=== PATIENT | female | born 1980 | race African-American/Black ===

== ENCOUNTER 2016-11-13 21:22 | Inpatient (IN) | payer OTHER ==
[~2016-11-13] VITALS: Ht 165.1 cm; Wt 98.4 kg
[~2016-11-13 21:22] MED LIST: CYCL-36 PO; NAPR500 PO; ULTR50TA5 PO; ZOFR4TAB3 SL
[2016-11-13 21:27] VITALS: BP 146/81; PULSE 88; RESP 18; TEMP 99.6; O2SAT 100
[2016-11-13] MEDS ORDERED: SODIUM CHLOR 0.9% 1000 ML INJ 1,000 ML IV SCH (21:41)
[2016-11-13] MEDS ORDERED: MORPHINE SULFATE 4 MG/ML INJ IV PUSH ONE (21:45)
[2016-11-13] MEDS ORDERED: PANTOPRAZOLE SODIUM 40 MG VIAL IVP ONE (21:45)
[2016-11-13] MEDS ORDERED: ONDANSETRON HCL 4 MG/2 ML VIAL IVP ONE (21:45)
--- NOTE | 2016-11-13 21:49 | PD ---
HPI Chief Complaint: GI Complaint Time Seen by Provider: 21:33 Travel History International Travel<30 days: No Contact w/Intl Traveler<30days: No Traveled to known affect area: No History of Present Illness HPI 36-year-old female complains of abdominal pain and nausea vomiting. Patient states that symptoms started 3 days ago. Patient states the pain is cramping pain and sharp pain, diffuse over the abdomen however most severe right upper quadrant the abdomen. Patient states the pain radiates to the right flank area. Patient states the pain occasionally radiates to the right shoulder. Patient denies any fever chills. Patient denies any coughing congestion. Patient states that she has intermittent indigestion for the past few months. Patient denies any headache. Patient denies any chest pain or shortness of breath. Patient denies any dysuria or frequency. Patient denies any vaginal discharge or bleeding. Patient denies any fever chills. On a scale of 1-10 the pain is a 9. Patient was seen in emergency room last night and discharged with diagnosis of biliary colic. Patient states that the symptoms and get worse since last night. PFSH Past Medical History Blood Disorders: No Cancer: No Cardiovascular Problems: Yes (CHF after giving ) High Cholesterol: No Chest Pain: No Congestive Heart Failure: Yes (WITH FIRST CHILD DEC 2004) Diabetes: Yes (Borderline ) Diminished Hearing: No Endocrine: No Gastrointestinal Disorders: No Genitourinary: No Hypertension: No Immune Disorder: No Musculoskeletal: No Neurologic: No Psychiatric: No Reproductive: No Respiratory: No Immunizations Current: Yes Myocardial Infarction: No ?: Not LMP: Tubal/End of September : 7 Para: 6 Miscarriage: 1 : 0 Dilation and Curettage (D&C): Yes Tubal Ligation: Yes Past Surgical History Abdominal Surgery: No Cardiac Surgery: No Ear Surgery: No Endocrine Surgery: No Eye Surgery: No Genitourinary Surgery: No Gynecologic Surgery: Yes (D AND C) Oral Surgery: No Thoracic Surgery: No Other Surgery: Yes (D&C) Social History Alcohol Use: No Tobacco Use: No Substance Use: No Allergies-Medications (Allergen,Severity, Reaction): Coded Allergies: Iodine (Verified Allergy, Severe, Rash, 11/13/16) Iohexol (OMNIPAQUE) (Unverified Allergy, Severe, PT NEEDS TO BR PREMEDICATED, 11/13/16) Reported Meds & Prescriptions Reported Meds & Active Scripts Active Ultram (Tramadol HCl) 50 Mg Tab 50 Mg PO Q6H PRN Zofran Odt (Ondansetron Odt) 4 Mg Tab 4 Mg SL Q6HR PRN Flexeril (Cyclobenzaprine HCl) 10 Mg Tab 10 Mg PO TID Naprosyn (Naproxen) 500 Mg Tab 1 Tab PO BID Review of Systems General / Constitutional: No: Fever Eyes: No: Visual changes HENT: No: Headaches Cardiovascular: No: Chest Pain or Discomfort Respiratory: No: Shortness of Breath Gastrointestinal: Positive: Nausea, Vomiting, Abdominal Pain Genitourinary: No: Dysuria Musculoskeletal: No: Pain Skin: No Rash Neurologic: No: Weakness Psychiatric: No: Depression Endocrine: No: Polydipsia Hematologic/Lymphatic: No: Easy Bruising Physical Exam Narrative GENERAL: Well-nourished, well-developed patient. SKIN: Warm and dry. HEAD: Normocephalic. EYES: No scleral icterus. No injection or drainage. NECK: Supple, trachea midline. No JVD or lymphadenopathy. CARDIOVASCULAR: Regular rate and rhythm without murmurs, gallops, or rubs. RESPIRATORY: Breath sounds equal bilaterally. No accessory muscle use. GASTROINTESTINAL: Abdomen soft, nondistended. Patient has moderate tenderness on palpation right upper quadrant of the abdomen. No rebound tenderness. No mass. MUSCULOSKELETAL: No cyanosis, or edema. BACK: Nontender without obvious deformity. No CVA tenderness. Neurologic exam normal. Data Data Last Documented VS Vital Signs Date Time Temp Pulse Resp B/P Pulse Ox O2 Delivery O2 Flow Rate FiO2 11/13/16 22:39 18 11/13/16 22:20 79 144/87 100 Room Air 11/13/16 21:27 99.6 Orders Beta Hcg (Quant/Titer) (11/13/16 21:41) Complete Blood Count With Diff (11/13/16 21:41) Comprehensive Metabolic Panel (11/13/16 21:41) Lipase (11/13/16 21:41) Prothrombin Time / Inr (Pt) (11/13/16 21:41) Act Partial Throm Time (Ptt) (11/13/16 21:41) Urinalysis - C+S If Indicated (11/13/16 21:41) Iv Access Insert/Monitor (11/13/16 21:41) Ecg Monitoring (11/13/16 21:41) Oximetry (11/13/16 21:41) Morphine Inj (Morphine Inj) (11/13/16 21:45) Ondansetron Inj (Zofran Inj) (11/13/16 21:45) Pantoprazole Inj (Protonix Inj) (11/13/16 21:45) Sodium Chlor 0.9% 1000 Ml Inj (Ns 1000 M (11/13/16 21:41) Ct Abd/Pel W/O Iv Contrast (11/13/16 21:41) Hydromorphone Pf Inj (Dilaudid Pf Inj) (11/13/16 23:30) Piperacil-Tazo 3.375 Gm Premix (Zosyn 3. (11/13/16 23:30) Metronidazole 500 Mg Inj (Flagyl 500 Mg (11/13/16 23:30) Labs Laboratory Tests Test 11/13/16 21:50 White Blood Count 11.4 TH/MM3 Red Blood Count 4.27 MIL/MM3 Hemoglobin 11.6 GM/DL Hematocrit 35.2 % Mean Corpuscular Volume 82.5 FL Mean Corpuscular Hemoglobin 27.2 PG Mean Corpuscular Hemoglobin 33.0 % Concent Red Cell Distribution Width 15.4 % Platelet Count 351 TH/MM3 Mean Platelet Volume 8.2 FL Neutrophils (%) (Auto) 85.1 % Lymphocytes (%) (Auto) 9.1 % Monocytes (%) (Auto) 3.3 % Eosinophils (%) (Auto) 0.0 % Basophils (%) (Auto) 2.5 % Neutrophils # (Auto) 9.8 TH/MM3 Lymphocytes # (Auto) 1.0 TH/MM3 Monocytes # (Auto) 0.4 TH/MM3 Eosinophils # (Auto) 0.0 TH/MM3 Basophils # (Auto) 0.3 TH/MM3 CBC Comment DIFF FINAL Differential Comment Prothrombin Time 10.9 SEC Prothromb Time International 1.0 RATIO Ratio Activated Partial 23.8 SEC Thromboplast Time Sodium Level 137 MEQ/L Potassium Level 3.8 MEQ/L Chloride Level 101 MEQ/L Carbon Dioxide Level 24.5 MEQ/L Anion Gap 12 MEQ/L Blood Urea Nitrogen 10 MG/DL Creatinine 0.84 MG/DL Estimat Glomerular Filtration 92 ML/MIN Rate Random Glucose 138 MG/DL Calcium Level 8.7 MG/DL Total Bilirubin 0.5 MG/DL Aspartate Amino Transf 20 U/L (AST/SGOT) Alanine Aminotransferase 30 U/L (ALT/SGPT) Alkaline Phosphatase 81 U/L Total Protein 8.2 GM/DL Albumin 3.6 GM/DL Lipase 705 U/L Human Chorionic Gonadotropin, LESS THAN 1 Quant MIU/ML MDM Medical Decision Making Medical Screen Exam Complete: Yes Emergency Medical Condition: Yes Interpretation(s) 23:19 PM. CBC WBC 11.4. 85 neutrophil. CMP within normal limit. Lipase 705. Differential Diagnosis Differential diagnosis including gastritis, PUD, pancreatitis, cholecystitis, colitis, UTI, pyelonephritis, nephrolithiasis. Narrative Course 36-year-old female with abdominal pain, nausea vomiting. The pain most severe right upper quadrant of the abdomen. Normal saline solution 1 25 cc an hour. Morphine 4 mg IV. Zofran 4 mg IV. Protonix 40 mg IV. Dilaudid 1 mg IV given. Zosyn 3.375 g IV given. Flagyl 500 mg IV given. I spoke with Dr. Montana , negative restorer on-call. Advised medical admission to the main hospital with GI consultation. Diagnosis Primary Impression: Acute pancreatitis Qualified Code: K85.10 - Acute biliary pancreatitis without infection or necrosis Additional Impression: Cholelithiasis Qualified Code: K80.20 - Calculus of gallbladder without cholecystitis without obstruction Admitting Information Admitting Physician Requests: Admit Ozzie Valdes MD Nov 13, 2016 21:49
[2016-11-13 21:50] VITALS: O2SAT 100
[2016-11-13 22:09] LABS: AUTOMATED NEUTROPHIL # 9.8 TH/MM3 (1.8-7.7); BASOPHIL # 0.3 TH/MM3 (0-0.2); BASOPHIL % 2.5 % (0.0-2.0); HEMATOCRIT 35.2 % (35.0-46.0); LYMPH % 9.1 % (9.0-44.0); MEAN CELL VOLUME 82.5 FL (80.0-100.0); MEAN CORPUSCULAR HEMOGLOBIN 27.2 PG (27.0-34.0); MONO % 3.3 % (0.0-8.0); NEUT % 85.1 % (16.0-70.0); PLATELET COUNT 351 TH/MM3 (150-450); RED BLOOD COUNT 4.27 MIL/MM3 (4.00-5.30); RED CELL DISTRIBUTION WIDTH 15.4 % (11.6-17.2); WHITE BLOOD COUNT 11.4 TH/MM3 (4.0-11.0)
[2016-11-13 22:10] LABS: HEMO FLAGS DIFF FINAL
[2016-11-13 22:15] LABS: CHLORIDE 101 MEQ/L (98-107); POTASSIUM 3.8 MEQ/L (3.5-5.1); SODIUM (NA) 137 MEQ/L (136-145)
[2016-11-13 22:19] LABS: ANION GAP 12 MEQ/L (5-15); BICARBONATE 24.5 MEQ/L (21.0-32.0)
[2016-11-13 22:20] VITALS: BP 144/87; PULSE 79; RESP 18; O2SAT 100
[2016-11-13 22:20] LABS: APTT (PATIENT) 23.8 SEC (24.3-30.1); BLOOD UREA NITROGEN 10 MG/DL (7-18); PROTHROMBIN TIME - PATIENT 10.9 SEC (9.8-11.6)
[2016-11-13 22:22] LABS: ALT (GPT) 30 U/L (10-53); AST (GOT) 20 U/L (15-37); GLOMERULAR FILTRATION RATE 92 ML/MIN (>89)
[2016-11-13 22:24] LABS: TOTAL BILIRUBIN ADULT 0.5 MG/DL (0.2-1.0)
[2016-11-13 22:25] LABS: ALKALINE PHOSPHATASE 81 U/L (45-117)
[2016-11-13 22:31] LABS: BETA HCG QUANT LESS THAN 1 MIU/ML (0-5)
[2016-11-13 23:20] VITALS: BP 129/76; PULSE 90; RESP 18; TEMP 99.2; O2SAT 98
--- NOTE | 2016-11-13 23:23 | RADHPO ---
EXAM DATE/TIME: 11/13/2016 22:54 [facility] COMPARISON: No previous studies available for comparison. INDICATIONS : Right flank pain with nausea and vomiting. ORAL CONTRAST: No oral contrast ingested. RADIATION DOSE: 23.18 CTDIvol (mGy) MEDICAL HISTORY : Congestive heart failure. SURGICAL HISTORY : Tubal ligation. ENCOUNTER: Initial ACUITY: 1 day PAIN SCALE: 6/10 LOCATION: Right flank TECHNIQUE: Volumetric scanning of the abdomen and pelvis was performed. Using automated exposure control and ad justment of the mA and/or kV according to patient size, radiation dose was kept as low as reasonably achievable to obtain optimal diagnostic quality images. FINDINGS: LOWER LUNGS: The visualized lower lungs are clear. LIVER: The liver is normal in size and shape with diffuse fatty infiltration. There is a focal low attenuati on lesion in the anterior liver best seen on axial image #17 measuring approximately 12 x 8 mm. There is no dilation of the biliary tree. There are multiple small high density foci in the gallbladder wh ich are not definitely calcified. There is no wall thickening or pericholecystic fluid. SPLEEN: Normal size without lesion. PANCREAS: Within normal limits. KIDNEYS: Normal in size and shape. There is no mass, stone, or hydronephrosis. ADRENAL GLANDS: Within normal limits. VASCULAR: There is no aortic aneurysm. BOWEL/MESENTERY: The stomach, small bowel, and colon demonstrate no acute abnormality. There is no free intraperitone al air or fluid. ABDOMINAL WALL: Within normal limits. RETROPERITONEUM: There is no lymphadenopathy. BLADDER: No wall thickening or mass. REPRODUCTIVE: Within normal limits. INGUINAL: There is no lymphadenopathy or hernia. MUSCULOSKELETAL: Within normal limits for patient age. CONCLUSION: 1. Numerous small high density foci in the gallbladder which are not definitely calcified but are mos t consistent with gallstones. There is no wall thickening or pericholecystic fluid. 2. Diffuse fatty infiltration of the liver with low attenuation lesion which is nonspecific but most consistent with a cyst or cavernous hemangioma. 3. The kidneys are unremarkable with no renal calculi or obstruction. Jude Hwang MD on November 13, 2016 at 23:19 Board Certified Radiologist. This report was verified electronically.
[2016-11-13] MEDS ORDERED: PIPERACIL-TAZO 3.375 GM PREMIX 50 ML IV ONE (23:30)
[2016-11-13] MEDS ORDERED: metroNIDAZOLE 500 MG INJ 100 ML IV ONE (23:30)
[2016-11-13] MEDS ORDERED: HYDROmorphone HCL PF 1 MG/ML VIAL IV PUSH ONE (23:30)
[2016-11-14] VITALS (11 sets, daily range): BP systolic 112–145; BP diastolic 58–71; PULSE 81–95; RESP 16–20; TEMP 98.6–99.2; O2SAT 96–99
[2016-11-14] MEDS ORDERED: SODIUM CHLORIDE 0.9% FLUSH 5 ML FLUSH IVF PRN
[2016-11-14] MEDS ORDERED: metroNIDAZOLE 500 MG INJ 100 ML IV SCH ×4 (00:15→08:00)
[2016-11-14 01:12] LABS: BLOOD, URINE SMALL (NEG); GLUCOSE,URINE NEG (NEG); KETONE, URINE 40 mg/dL (NEG); NITRITE,URINE NEG (NEG)
[2016-11-14 01:14] LABS: URINE COLOR YELLOW (YELLW/STRAW)
[2016-11-14 01:18] LABS: COMMENT (UR) CULT NOT INDICATED; CULTURE IF INDICATED CULT NOT INDICATED; WBC, URINE 0-2 /hpf (0-5)
[2016-11-14] MEDS: PANTOPRAZOLE SODIUM 40 MG VIAL IV PUSH SCH (07:51)
[2016-11-14] MEDS: HYDROmorphone HCL PF 1 MG/ML VIAL IV PUSH PRN ×4 (07:52→22:50)
[2016-11-14] MEDS: SODIUM CHLORIDE 0.9% FLUSH 5 ML FLUSH IVF SCH ×2 (07:52→22:51)
[2016-11-14] MEDS ORDERED: PIPERACIL-TAZO 3.375 GM PREMIX 50 ML IV SCH ×2 (08:00)
[2016-11-14 09:10] LABS: AUTOMATED NEUTROPHIL # 9.5 TH/MM3 (1.8-7.7); BASOPHIL # 0.1 TH/MM3 (0-0.2); BASOPHIL % 0.8 % (0.0-2.0); EOSINOPHIL % 0.1 % (0.0-4.0); HEMATOCRIT 32.1 % (35.0-46.0); HEMO FLAGS DIFF FINAL; LYMPH % 10.8 % (9.0-44.0); LYMPHOCYTE # 1.2 TH/MM3 (1.0-4.8); MEAN CORPUSCULAR HEMOGLOBIN 26.6 PG (27.0-34.0); MONO % 5.8 % (0.0-8.0); NEUT % 82.5 % (16.0-70.0); PLATELET COUNT 270 TH/MM3 (150-450); RED BLOOD COUNT 3.87 MIL/MM3 (4.00-5.30); RED CELL DISTRIBUTION WIDTH 16.7 % (11.6-17.2); WHITE BLOOD COUNT 11.5 TH/MM3 (4.0-11.0)
[2016-11-14 09:42] LABS: ALKALINE PHOSPHATASE 72 U/L (45-117); ALT (GPT) 25 U/L (10-53); ANION GAP 9 MEQ/L (5-15); AST (GOT) 14 U/L (15-37); BLOOD UREA NITROGEN 10 MG/DL (7-18); CHLORIDE 99 MEQ/L (98-107); GLOMERULAR FILTRATION RATE 99 ML/MIN (>89); POTASSIUM 3.2 MEQ/L (3.5-5.1); SODIUM (NA) 135 MEQ/L (136-145); TOTAL BILIRUBIN ADULT 0.6 MG/DL (0.2-1.0)
--- NOTE | 2016-11-14 11:23 | PD.CONS ---
HPI History of Present Illness This is a 36 year old female patient who came to the ER for evaluation of nausea , vomiting, abdominal pain. Her symptoms began suddenly about 3 days ago. She states that this is a dull ache in her epigastric area that radiates to her back. She states this is constant and she has associated nausea/vomiting. She denies any associated weight loss, diarrhea, constipation, melena, or hematochezia. She has a hx of GERD, but states only if she eats fried foods, otherwise this is well controlled. She reports that she has been having this intermittently for quite some time, but that it has become more severe and frequent over the past 3 weeks. Her symptoms are aggravated by food intake. Abdomen/Pelvis CT (11/13/16)-----> 1. Numerous small high density foci in the gallbladder which are not definitely calcified but are most consistent with gallstones. There is no wall thickening or pericholecystic fluid. 2. Diffuse fatty infiltration of the liver with low attenuation lesion which is nonspecific but most consistent with a cyst or cavernous hemangioma. 3. The kidneys are unremarkable with no renal calculi or obstruction. She also has mild leukocytosis and her lipase was mildly elevated on admission, but has since normalized. She denies any hx of pancreatitis or PUD. She denies ever having any gallbladder issues. She does not drink ETOH and has not recently started any new medications or herbal supplements. She is not aware of any family hx of pancreatitis. (Lois Verma) PFSH Past Medical History B12 Deficiency Iron Deficient Anemia Migraine headache Cervical radiculopathy Vitamin D. Deficiency Biliary colic Past Surgical History Tubal ligation D&C (Lois Verma) Coded Allergies: Iodine (Verified Allergy, Severe, Rash, 11/13/16) Iohexol (OMNIPAQUE) (Unverified Allergy, Severe, PT NEEDS TO BR PREMEDICATED, 11/13/16) Medications Allergies Coded Allergies Type Severity Reaction Last Updated Verified Iodine Allergy Severe Rash 11/13/16 Yes Iohexol (OMNIPAQUE) Allergy Severe PT NEEDS TO BR PREMEDICATED 11/13/16 No Active Scripts Medications Dose Route/Sig Days Date Category Ultram (Tramadol HCl) 50 Mg Tab 50 Mg PO Q6H PRN 11/13/16 Rx Zofran Odt (Ondansetron Odt) 4 Mg Tab 4 Mg SL Q6HR PRN 11/13/16 Rx Flexeril (Cyclobenzaprine HCl) 10 Mg Tab 10 Mg PO TID 03/01/14 Rx Naprosyn (Naproxen) 500 Mg Tab 1 Tab PO BID 03/01/14 Rx Family History Denies any significant family hx Social History Does not smoke, use etoh, or illicit drug use. (Lois Verma) Review of Systems Constitutional: DENIES: Fatigue, Fever, Weight loss, Chills Respiratory: DENIES: Cough Cardiovascular: DENIES: Chest pain Gastrointestinal: COMPLAINS OF: Abdominal pain, Nausea, Vomiting, Swelling of Abdomen (mild bloating), Heartburn, DENIES: Black stools, Bloody stools, Constipation, Diarrhea Musculoskeletal: COMPLAINS OF: Back pain Integumentary: DENIES: Abnormal pigmentation Hematologic/lymphatic: DENIES: Bruising Neurologic: DENIES: Headache Psychiatric: DENIES: Confusion (Lois Verma) GI Exam Vitals I&O Vital Signs Date Time Temp Pulse Resp B/P Pulse Ox O2 Delivery O2 Flow Rate FiO2 11/14/16 08:00 86 11/14/16 08:00 99.2 90 19 112/58 97 11/14/16 07:39 82 11/14/16 02:45 98.6 81 18 145/71 99 11/14/16 01:20 83 16 129/67 97 Room Air 11/14/16 00:20 84 18 128/68 99 Room Air 11/14/16 00:00 97 21 11/13/16 23:20 99.2 90 18 129/76 98 Room Air 11/13/16 22:39 18 11/13/16 22:20 79 18 144/87 100 Room Air 11/13/16 21:50 100 Room Air 11/13/16 21:45 18 11/13/16 21:27 99.6 88 18 146/81 100 I/O 11/13/16 11/13/16 11/13/16 11/14/16 11/14/16 11/14/16 07:00 15:00 23:00 07:00 15:00 23:00 Intake Total 390 ml Output Total 150 ml Balance 240 ml Intake Oral 240 ml IV Total 150 ml Output Urine Total 150 ml # Voids 2 Imaging Last Impressions Abdomen/Pelvis CT 11/13/16 7960 Signed Impressions: Service Date/Time: Sunday, November 13, 2016 22:54 - CONCLUSION: 1. Numerous small high density foci in the gallbladder which are not definitely calcified but are most consistent with gallstones. There is no wall thickening or pericholecystic fluid. 2. Diffuse fatty infiltration of the liver with low attenuation lesion which is nonspecific but most consistent with a cyst or cavernous hemangioma. 3. The kidneys are unremarkable with no renal calculi or obstruction. Jude Hwang MD Laboratory Test 11/13/16 11/14/16 11/14/16 21:50 00:50 08:49 White Blood Count 11.4 TH/MM3 11.5 TH/MM3 Red Blood Count 4.27 MIL/MM3 3.87 MIL/MM3 Hemoglobin 11.6 GM/DL 10.3 GM/DL Hematocrit 35.2 % 32.1 % Mean Corpuscular Volume 82.5 FL 83.0 FL Mean Corpuscular Hemoglobin 27.2 PG 26.6 PG Mean Corpuscular Hemoglobin 33.0 % 32.0 % Concent Red Cell Distribution Width 15.4 % 16.7 % Platelet Count 351 TH/MM3 270 TH/MM3 Mean Platelet Volume 8.2 FL 8.1 FL Neutrophils (%) (Auto) 85.1 % 82.5 % Lymphocytes (%) (Auto) 9.1 % 10.8 % Monocytes (%) (Auto) 3.3 % 5.8 % Eosinophils (%) (Auto) 0.0 % 0.1 % Basophils (%) (Auto) 2.5 % 0.8 % Neutrophils # (Auto) 9.8 TH/MM3 9.5 TH/MM3 Lymphocytes # (Auto) 1.0 TH/MM3 1.2 TH/MM3 Monocytes # (Auto) 0.4 TH/MM3 0.7 TH/MM3 Eosinophils # (Auto) 0.0 TH/MM3 0.0 TH/MM3 Basophils # (Auto) 0.3 TH/MM3 0.1 TH/MM3 CBC Comment DIFF FINAL DIFF FINAL Differential Comment Prothrombin Time 10.9 SEC Prothromb Time International 1.0 RATIO Ratio Activated Partial 23.8 SEC Thromboplast Time Sodium Level 137 MEQ/L 135 MEQ/L Potassium Level 3.8 MEQ/L 3.2 MEQ/L Chloride Level 101 MEQ/L 99 MEQ/L Carbon Dioxide Level 24.5 MEQ/L 27.0 MEQ/L Anion Gap 12 MEQ/L 9 MEQ/L Blood Urea Nitrogen 10 MG/DL 10 MG/DL Creatinine 0.84 MG/DL 0.79 MG/DL Estimat Glomerular Filtration 92 ML/MIN 99 ML/MIN Rate Random Glucose 138 MG/DL 128 MG/DL Calcium Level 8.7 MG/DL 8.2 MG/DL Total Bilirubin 0.5 MG/DL 0.6 MG/DL Aspartate Amino Transf 20 U/L 14 U/L (AST/SGOT) Alanine Aminotransferase 30 U/L 25 U/L (ALT/SGPT) Alkaline Phosphatase 81 U/L 72 U/L Total Protein 8.2 GM/DL 7.0 GM/DL Albumin 3.6 GM/DL 3.2 GM/DL Lipase 705 U/L 138 U/L Human Chorionic Gonadotropin, LESS THAN 1 Quant MIU/ML Urine Color YELLOW Urine Turbidity SLIGHT Urine pH 7.0 Urine Specific [place] 1.028 Urine Protein NEG mg/dL Urine Glucose (UA) NEG mg/dL Urine Ketones 40 mg/dL Urine Occult Blood SMALL Urine Nitrite NEG Urine Bilirubin NEG Urine Leukocyte Esterase NEG Urine RBC 4-9 /hpf Urine WBC 0-2 /hpf Urine Squamous Epithelial 6-8 /hpf Cells Urine Bacteria NONE /hpf Microscopic Urinalysis Comment CULT NOT INDICATED Physical Examination HEENT: Normocephalic; atraumatic; no jaundice. Throat is clear. NECK: Neck is supple, no JVD, no lymphadenopathy. CHEST: Chest is clear to auscultation and percussion. CARDIAC: RRR ABDOMEN: Soft, nondistended, RUQ tendeness; no hepatosplenomegaly; bowel sounds are present in all four quadrants. EXTREMITIES: No clubbing, cyanosis, or edema. SKIN: Normal; no rash; no jaundice. SECOND SHIFT SUPERVISOR: No focal deficits; alert and oriented times three. (Lois Verma) Assessment and Plan Plan ASSESSMENT: - RUQ Pain, N/V, possibly mild biliary pancreatitis. Abdomen/Pelvis CT ()-----> 1. Numerous small high density foci in the gallbladder which are not definitely calcified but are most consistent with gallstones. There is no wall thickening or pericholecystic fluid. 2. Diffuse fatty infiltration of the liver with low attenuation lesion which is nonspecific but most consistent with a cyst or cavernous hemangioma. 3. The kidneys are unremarkable with no renal calculi or obstruction. Will get HIDA. If negative, consider EGD. PPI. Clear liquids. - Cholelithiasis, Biliary Colic. No wall thickening or pericholecystic fluid, but she has been having what seems like biliary colic for the past several weeks and this is now more constant. Will get HIDA. Clear liquids. - Hypokalemia per primary PLAN: - Clear liquids - NPO after MN - HIDA Scan - PPI - CBC, BMP in am - If HIDA negative, then consider EGD in am - Supportive care - Further recommendations to follow based on results of above - Pt seen and examined by Dr. Montana and myself and this note is written on his behalf (Lois Verma) Physician Comments Seen and examined, HIDA scan results noted for possible cholecystectomy pending delayed images. (Kenyatta Montana MD) Lois Verma Nov 14, 2016 11:23 Kenyatta Montana MD Nov 14, 2016 22:42
--- NOTE | 2016-11-14 11:58 | HHI.HP ---
HPI Service [facility] Primary Care Physician Ramana De La Garza MD Admission Diagnosis acute pancreatitis. Cholelithiasis. Chief Complaint: abdomen pain Travel History International Travel<30 Days: No Contact w/Intl Traveler <30 Da: No Traveled to Known Affected Are: No History of Present Illness Pt is 36 yo with ongoing nausea and worsening epigastric/ruq pain over past 3 days. Says eating food does make it worse. did have some n/v. w/up so far shows mild lipase elevation and gallstones bringing gallstone pancreatitis in to question. GI requested transfer to [facility] from [place]. Review of Systems Other epigastric pain n/v Past Family Social History Past Medical History recently told she had dm and pcp will treat with diet. Reported Medications Reported Meds & Active Scripts Active Ultram (Tramadol HCl) 50 Mg Tab 50 Mg PO Q6H PRN Zofran Odt (Ondansetron Odt) 4 Mg Tab 4 Mg SL Q6HR PRN Flexeril (Cyclobenzaprine HCl) 10 Mg Tab 10 Mg PO TID Naprosyn (Naproxen) 500 Mg Tab 1 Tab PO BID Allergies: Coded Allergies: Iodine (Verified Allergy, Severe, Rash, 11/13/16) Iohexol (OMNIPAQUE) (Unverified Allergy, Severe, PT NEEDS TO BR PREMEDICATED, 11/13/16) Family History nc Social History no tob/etoh Physical Exam Vital Signs heart reg lung cta abd epigastric tenderness. no marcos bs/nd ext no edema Vital Signs Date Time Temp Pulse Resp B/P Pulse Ox O2 Delivery O2 Flow Rate FiO2 11/14/16 08:00 86 11/14/16 08:00 99.2 90 19 112/58 97 11/14/16 07:39 82 11/14/16 02:45 98.6 81 18 145/71 99 11/14/16 01:20 83 16 129/67 97 Room Air 11/14/16 00:20 84 18 128/68 99 Room Air 11/14/16 00:00 97 21 11/13/16 23:20 99.2 90 18 129/76 98 Room Air 11/13/16 22:39 18 11/13/16 22:20 79 18 144/87 100 Room Air 11/13/16 21:50 100 Room Air 11/13/16 21:45 18 11/13/16 21:27 99.6 88 18 146/81 100 Physical Exam GENERAL: This is a well-nourished, well-developed patient, in no apparent distress. SKIN: No rashes, ecchymoses or lesions. Cool and dry. HEAD: Atraumatic. Normocephalic. No temporal or scalp tenderness. EYES: Pupils equal round and reactive. Extraocular motions intact. No scleral icterus. No injection or drainage. ENT: Nose without bleeding, purulent drainage or septal hematoma. Throat without erythema, tonsillar hypertrophy or exudate. Uvula midline. Airway patent. NECK: Trachea midline. No JVD or lymphadenopathy. Supple, nontender, no meningeal signs. CARDIOVASCULAR: Regular rate and rhythm without murmurs, gallops, or rubs. RESPIRATORY: Clear to auscultation. Breath sounds equal bilaterally. No wheezes , rales, or rhonchi. GASTROINTESTINAL: Abdomen soft, non-tender, nondistended. No hepato-splenomegaly , or palpable masses. No guarding. MUSCULOSKELETAL: Extremities without clubbing, cyanosis, or edema. No joint tenderness, effusion, or edema noted. No calf tenderness. Negative Homans sign bilaterally. NEUROLOGICAL: Awake and alert. Cranial nerves II through XII intact. Motor and sensory grossly within normal limits. Five out of 5 muscle strength in all muscle groups. Normal speech. Laboratory Laboratory Tests Test 11/13/16 11/14/16 11/14/16 21:50 00:50 08:49 White Blood Count 11.4 11.5 Red Blood Count 4.27 3.87 Hemoglobin 11.6 10.3 Hematocrit 35.2 32.1 Mean Corpuscular Volume 82.5 83.0 Mean Corpuscular Hemoglobin 27.2 26.6 Mean Corpuscular Hemoglobin 33.0 32.0 Concent Red Cell Distribution Width 15.4 16.7 Platelet Count 351 270 Mean Platelet Volume 8.2 8.1 Neutrophils (%) (Auto) 85.1 82.5 Lymphocytes (%) (Auto) 9.1 10.8 Monocytes (%) (Auto) 3.3 5.8 Eosinophils (%) (Auto) 0.0 0.1 Basophils (%) (Auto) 2.5 0.8 Neutrophils # (Auto) 9.8 9.5 Lymphocytes # (Auto) 1.0 1.2 Monocytes # (Auto) 0.4 0.7 Eosinophils # (Auto) 0.0 0.0 Basophils # (Auto) 0.3 0.1 CBC Comment DIFF FINAL DIFF FINAL Differential Comment Prothrombin Time 10.9 Prothromb Time International 1.0 Ratio Activated Partial 23.8 Thromboplast Time Sodium Level 137 135 Potassium Level 3.8 3.2 Chloride Level 101 99 Carbon Dioxide Level 24.5 27.0 Anion Gap 12 9 Blood Urea Nitrogen 10 10 Creatinine 0.84 0.79 Estimat Glomerular Filtration 92 99 Rate Random Glucose 138 128 Calcium Level 8.7 8.2 Total Bilirubin 0.5 0.6 Aspartate Amino Transf 20 14 (AST/SGOT) Alanine Aminotransferase 30 25 (ALT/SGPT) Alkaline Phosphatase 81 72 Total Protein 8.2 7.0 Albumin 3.6 3.2 Lipase 705 138 Human Chorionic Gonadotropin, LESS THAN 1 Quant Urine Color YELLOW Urine Turbidity SLIGHT Urine pH 7.0 Urine Specific [place] 1.028 Urine Protein NEG Urine Glucose (UA) NEG Urine Ketones 40 Urine Occult Blood SMALL Urine Nitrite NEG Urine Bilirubin NEG Urine Leukocyte Esterase NEG Urine RBC 4-9 Urine WBC 0-2 Urine Squamous Epithelial 6-8 Cells Urine Bacteria NONE Microscopic Urinalysis Comment CULT NOT INDICATED Result Diagram: 11/14/16 0849 11/14/16 0849 Assessment and Plan Problem List: (1) Acute pancreatitis Status: Acute Plan: Pt admitted and transfer to [facility] for concerns over possible gallstone pancreatitis. mild lipase elevation and gallstone in gb. not convincing for cholecystitis. will keep npo, ivf, prn pain meds and await further reccs.. ?egd being considered Physician Certification 2 Midnight Certification Type: Admission for Inpatient Services Order for Inpatient Services 2The services are ordered in accordance with Medicare regulations or non- Medicare payer requirements, as applicable. In the case of services not specified as inpatient-only, they are appropriately provided as inpatient services in accordance with the 2-midnight benchmark. Estimated LOS (days): 2 2 days is the estimated time the patient will need to remain in the hospital, assuming treatment plan goals are met and no additional complications. Post-Hospital Plan: Home Problem Qualifiers (1) Acute pancreatitis: Qualified Code: K85.10 - Acute biliary pancreatitis without infection or necrosis Eliud Sanchez MD Nov 14, 2016 11:58
[2016-11-14] MEDS ORDERED: SODIUM CHLOR 0.9% 1000 ML INJ 1,000 ML IV SCH (12:00)
[2016-11-14] MEDS: NS + KCL 20 MEQ INJ 1,000 ML IV SCH ×2 (12:38→22:51)
[2016-11-14] MEDS: ACETAMINOPHEN 325 MG TAB PO PRN ×3 (12:41→22:50)
--- NOTE | 2016-11-14 17:48 | RADRPT ---
EXAM DATE/TIME: 11/14/2016 16:30 This report includes an Addendum and supersedes previous reports for this exam. [facility] COMPARISON: CT ABDOMEN & PELVIS W/O CONTRAST, November 13, 2016, 22:54. INDICATIONS : Abdominal pain, nausea and vomiting for 3 days. DOSE: 4.1 mCi Tc99m Mebrofenin IV MEDICAL HISTORY : Congestive heart failure. Hypertension. SURGICAL HISTORY : Tubal ligation. ENCOUNTER: Initial ACUITY: 3 days PAIN SCALE: 5/10 LOCATION: Right upper quadrant TECHNIQUE: Following the intravenous administration of radiotracer, dynamic sequential images were performed wit h continuous acquisition. FINDINGS: Exam quality is mildly degraded due to motion artifact. HEPATIC KINETICS: There is prompt uptake of radiotracer in the liver. No focal defects are seen. There is normal rate of washout from the hepatic parenchyma. BILIARY CLEARANCE: Activity is first seen in the extrahepatic biliary system at 15 minutes. There is normal excretion i nto the small bowel. GALLBLADDER: No gallbladder activity is visualized after 60 minutes of imaging. BILIARY ENTRIC REFLUX: None observed. CONCLUSION: Examination degraded by patient motion. No gallbladder activity is identified at 60 minutes into the examination. Therefore, cystic duct obstruction cannot be excluded at this time. Delayed imaging will be obtained. Quan Graham MD on November 14, 2016 at 17:45 Board Certified Radiologist. This report was verified electronically. ADDENDUM: 24 delayed images were performed. Tracer activity is not demonstrated in the gallbladder. There is tr acer activity in the GI tract. Oh Sigala MD on November 15, 2016 at 10:34 Board Certified Radiologist. This report was verified electronically.
[2016-11-15] VITALS (8 sets, daily range): BP systolic 112–132; BP diastolic 63–82; PULSE 82–112; RESP 16–20; TEMP 98.8–100.8; O2SAT 96–99
[2016-11-15] MEDS: NS + KCL 20 MEQ INJ 1,000 ML IV SCH (01:44)
[2016-11-15] MEDS: HYDROmorphone HCL PF 1 MG/ML VIAL IV PUSH PRN ×4 (03:46→21:15)
[2016-11-15] MEDS: ACETAMINOPHEN 325 MG TAB PO PRN ×4 (03:48→23:17)
[2016-11-15 06:40] LABS: BASOPHIL % 0.3 % (0.0-2.0); EOSINOPHIL % 0.1 % (0.0-4.0); HEMATOCRIT 31.2 % (35.0-46.0); HEMO FLAGS DIFF FINAL; LYMPH % 8.1 % (9.0-44.0); MEAN CELL VOLUME 83.2 FL (80.0-100.0); MEAN CORPUSCULAR HEMOGLOBIN 26.9 PG (27.0-34.0); MEAN CORPUSCULAR HGB CONC 32.4 % (32.0-36.0); MONO % 6.4 % (0.0-8.0); NEUT % 85.1 % (16.0-70.0); PLATELET COUNT 267 TH/MM3 (150-450); RED BLOOD COUNT 3.75 MIL/MM3 (4.00-5.30); RED CELL DISTRIBUTION WIDTH 16.9 % (11.6-17.2); WHITE BLOOD COUNT 12.9 TH/MM3 (4.0-11.0)
[2016-11-15 06:58] LABS: BICARBONATE 25.1 MEQ/L (21.0-32.0); POTASSIUM 3.3 MEQ/L (3.5-5.1)
[2016-11-15] MEDS: PIPERACIL-TAZO 3.375 GM PREMIX 50 ML IV SCH ×3 (08:59→21:14)
[2016-11-15] MEDS: PANTOPRAZOLE SODIUM 40 MG VIAL IV PUSH SCH (08:59)
[2016-11-15] MEDS: SODIUM CHLORIDE 0.9% FLUSH 5 ML FLUSH IVF SCH ×2 (09:00→21:14)
--- NOTE | 2016-11-15 09:53 | HHI.PR ---
Subjective Remarks still with ruq pain. Objective Vitals heart reg lng cta abd ruq tenderness. bs ext no edema Vital Signs Date Time Temp Pulse Resp B/P Pulse Ox O2 Delivery O2 Flow Rate FiO2 11/15/16 08:01 100.0 98 18 125/76 99 11/15/16 04:17 100.0 106 18 131/82 98 11/15/16 00:47 98.9 97 16 112/65 97 11/14/16 21:23 98 21 11/14/16 20:58 99.2 88 18 113/70 98 11/14/16 20:00 95 11/14/16 12:47 96 21 11/14/16 12:00 99.2 84 20 120/67 99 11/14/16 11/14/16 11/15/16 15:00 23:00 07:00 Intake Total 0 ml 600 ml 520 ml Output Total 800 ml Balance 0 ml -200 ml 520 ml Intake Oral 0 ml 600 ml 520 ml Output Urine Total 800 ml # Voids 3 3 # Bowel Movements 0 1 0 Result Diagram: 11/15/1651711/15/16 0518 A/P Problem List: (1) Acute pancreatitis Status: Acute Plan: Pt admitted and transfer to [facility] for concerns over possible gallstone pancreatitis. mild lipase elevation and gallstone in gb. Lipase nml now Hida scan so far concerning for cystic duct obstruction. cont npo/ivf. had fever so cont abx await GI decision and probably needs surgical consult after final hida images today Problem Qualifiers (1) Acute pancreatitis: Qualified Code: K85.10 - Acute biliary pancreatitis without infection or necrosis Eliud Sanchez MD Nov 15, 2016 09:53
[2016-11-15] MEDS ORDERED: HYDROmorphone HCL PF 1 MG/ML VIAL IV PUSH ONE (12:15)
[2016-11-15] MEDS: NS + KCL 40 MEQ INJ 1,000 ML IV SCH ×2 (12:16→21:14)
--- NOTE | 2016-11-15 16:23 | HHI.GIFU ---
Subjective Remarks Still symptomatic with intermittent abdominal pain and low grade fever. Objective Vitals I&O Vital Signs Date Time Temp Pulse Resp B/P Pulse Ox O2 Delivery O2 Flow Rate FiO2 11/15/16 12:20 98.8 82 18 128/74 98 11/15/16 09:30 20 11/15/16 08:08 Nasal Cannula 11/15/16 08:01 100.0 98 18 125/76 99 11/15/16 04:17 100.0 106 18 131/82 98 11/15/16 00:47 98.9 97 16 112/65 97 11/14/16 21:23 98 21 11/14/16 20:58 99.2 88 18 113/70 98 11/14/16 20:00 95 I/O 11/14/16 11/14/16 11/14/16 11/15/16 11/15/16 11/15/16 06:59 14:59 22:59 06:59 14:59 22:59 Intake Total 390 ml 0 ml 600 ml 520 ml Output Total 150 ml 800 ml Balance 240 ml 0 ml -200 ml 520 ml Intake Oral 240 ml 0 ml 600 ml 520 ml IV Total 150 ml Output Urine Total 150 ml 800 ml # Voids 2 3 3 # Bowel Movements 0 1 0 Laboratory Laboratory Tests Test 11/15/16 05:18 White Blood Count 12.9 Red Blood Count 3.75 Hemoglobin 10.1 Hematocrit 31.2 Mean Corpuscular Volume 83.2 Mean Corpuscular Hemoglobin 26.9 Mean Corpuscular Hemoglobin 32.4 Concent Red Cell Distribution Width 16.9 Platelet Count 267 Mean Platelet Volume 8.1 Neutrophils (%) (Auto) 85.1 Lymphocytes (%) (Auto) 8.1 Monocytes (%) (Auto) 6.4 Eosinophils (%) (Auto) 0.1 Basophils (%) (Auto) 0.3 Neutrophils # (Auto) 11.0 Lymphocytes # (Auto) 1.0 Monocytes # (Auto) 0.8 Eosinophils # (Auto) 0.0 Basophils # (Auto) 0.0 CBC Comment DIFF FINAL Differential Comment Sodium Level 136 Potassium Level 3.3 Chloride Level 100 Carbon Dioxide Level 25.1 Anion Gap 11 Blood Urea Nitrogen 8 Creatinine 0.63 Estimat Glomerular Filtration 128 Rate Random Glucose 107 Calcium Level 8.0 Physical Exam HEENT: Pupils round and reactive to light; normocephalic; atraumatic; no jaundice. Throat is clear. NECK: Neck is supple, no JVD, no lymphadenopathy. CHEST: Chest is clear to auscultation and percussion. CARDIAC: Regular rate and rhythm with no murmur gallop or rubs. ABDOMEN: minimal RUQ tenderness EXTREMITIES: No clubbing, cyanosis, or edema. SKIN: Normal; no rash; no jaundice. TILE AND MOTTLE SUPERVISOR: No focal deficits; alert and oriented times three. Assessment and Plan Plan ASSESSMENT: - RUQ Pain, N/V, possibly mild biliary pancreatitis. Abdomen/Pelvis CT ()-----> 1. Numerous small high density foci in the gallbladder which are not definitely calcified but are most consistent with gallstones. There is no wall thickening or pericholecystic fluid. 2. Diffuse fatty infiltration of the liver with low attenuation lesion which is nonspecific but most consistent with a cyst or cavernous hemangioma. 3. The kidneys are unremarkable with no renal calculi or obstruction. HIDA. showed delayed release through cystic duct. - Cholelithiasis, Biliary Colic. No wall thickening or pericholecystic fluid, but she has been having what seems like biliary colic for the past several weeks and this is now more constant. Will get HIDA. Clear liquids. - Hypokalemia per primary PLAN: - GS consult for cholecystectomy - PPI - CBC, BMP in am - Supportive care - Will sign off for now, please notify us if needed. Kenyatta Montana MD Nov 15, 2016 16:23
[2016-11-16] VITALS (8 sets, daily range): BP systolic 99–128; BP diastolic 56–74; PULSE 80–110; RESP 16–20; TEMP 98.1–101; O2SAT 98–100
[2016-11-16] MEDS: PIPERACIL-TAZO 3.375 GM PREMIX 50 ML IV SCH ×4 (02:28→13:26)
[2016-11-16] MEDS: HYDROmorphone HCL PF 1 MG/ML VIAL IV PUSH PRN ×2 (02:32→08:25)
[2016-11-16] MEDS: NS + KCL 40 MEQ INJ 1,000 ML IV SCH (05:00)
[2016-11-16 07:07] LABS: BICARBONATE 25.6 MEQ/L (21.0-32.0); POTASSIUM 3.8 MEQ/L (3.5-5.1)
[2016-11-16] MEDS: BUPIVACAINE/EPINEPHRINE 0.5% 50 ML VIAL ONE ×2 (08:22→09:35)
[2016-11-16] MEDS ORDERED: fentaNYL CITRATE 250 MCG/5 ML AMP ONE (09:03)
[2016-11-16] MEDS ORDERED: MIDAZOLAM HCL 2 MG/2 ML VIAL ONE (09:03)
[2016-11-16] MEDS ORDERED: DICLOFENAC SODIUM 37.5 MG/ML VIAL IV PUSH ONE (09:03)
[2016-11-16] MEDS ORDERED: FAMOTIDINE 20 MG/2 ML VIAL ONE (09:04)
--- NOTE | 2016-11-16 09:30 | HHI.PR ---
Subjective Remarks nervous about surgery Objective Vitals heart reg lung cta abd ruq tender. bs ext no edema Vital Signs Date Time Temp Pulse Resp B/P Pulse Ox O2 Delivery O2 Flow Rate FiO2 11/16/16 08:00 100.2 104 18 128/65 98 11/16/16 04:00 100.3 100 20 104/60 98 11/16/16 00:16 101.0 103 20 121/68 100 11/15/16 20:15 96 11/15/16 20:00 105 11/15/16 20:00 99.0 104 20 117/63 98 11/15/16 17:28 20 11/15/16 16:01 100.8 112 18 132/78 99 11/15/16 12:20 98.8 82 18 128/74 98 11/15/16 11/15/16 11/16/16 14:59 22:59 06:59 Intake Total 240 ml 1148 ml 815 ml Balance 240 ml 1148 ml 815 ml Intake Oral 240 ml 120 ml 0 ml IV Total 1028 ml 815 ml # Voids 2 2 4 # Bowel Movements 0 0 Result Diagram: 11/15/16 0518 11/16/16 0539 A/P Problem List: (1) Acute pancreatitis Status: Acute Plan: Pt admitted and transfer to [facility] for concerns over possible gallstone pancreatitis. mild lipase elevation and gallstone in gb. Lipase nml now Hida scan concerning for cystic duct obstruction and cholecystitis she has persistent ruq pain and fever discussed with GI and gen surg Dr Anne Pt to go for lap darius today cont current medical rx. (2) Acute cholecystitis Status: Acute Plan: see above Problem Qualifiers (1) Acute pancreatitis: Qualified Code: K85.10 - Acute biliary pancreatitis without infection or necrosis Eliud Sanchez MD Nov 16, 2016 09:30
[2016-11-16] MEDS ORDERED: NEOSTIGMINE 3 MG/3 ML SYR IV ONE (10:37)
[2016-11-16] MEDS ORDERED: PROPOFOL 200 MG/20 ML AMP IV ONE (10:37)
[2016-11-16] MEDS ORDERED: KETOROLAC TROMETHAMINE 60 MG/2 ML (IM) VIAL IM ONE ×2 (10:37→13:00)
[2016-11-16] MEDS ORDERED: NORMOSOL R INJ 1,000 ML IV ONE (10:38)
[2016-11-16] MEDS ORDERED: ONDANSETRON HCL 4 MG/2 ML VIAL IV PUSH ONE (10:38)
[2016-11-16] MEDS ORDERED: ACETAMINOPHEN 1000 MG/100 ML VIAL IV ONE (11:43)
--- NOTE | 2016-11-16 11:58 | PD.OP ---
cc: Hermelindo Anne MD Operative Report Date of Surgery: Nov 16, 2016 Preoperative Diagnosis: Acute cholecystitis and lithiasis Postoperative Diagnosis: Acute cholecystitis and lithiasis Procedure: Laparoscopic cholecystectomy Anesthesia: General endotracheal Surgeon: Hermelindo Anne Semiconductor Processing Technician(s): Azra Sarmiento CFA Operation and Findings: Operative findings: The patient was found to have a severely diseased, very thick-walled gallbladder with large stones within its lumen. It was mostly intrahepatic. The cystic duct was somewhat large but it was difficult to tell due to the amount of scar tissue. The common bile duct was relatively normal in size. No other gross abnormalities were noted other than fatty infiltration of the liver. Operative procedure: The patient was brought to the operating room and after satisfactory general endotracheal anesthesia was obtained, the abdomen was prepped and draped in usual sterile fashion. 0.5% Marcaine with epinephrine was used after the skin for local anesthesia. Small incision was made just above the umbilicus and a 5 mm trochars inserted into the peritoneal cavity under direct visualization. The abdomen was distended to 15 mmHg using carbon dioxide after which the camera was reinserted and visceral injury inspected for , with none being identified. Under direct visualization a 5 port a 12 port placed in the upper midline and a 5 port was placed in the right upper quadrant. The gallbladder was seen to be intrahepatic as noted above and it was emptied of approximately 50 mL's of clear viscous bile in order for to be able to be grasped. The gallbladder was then retracted superiorly over the right lobe of the liver and Au's pouch was grasped and retracted inferiorly and laterally placing tension on the hepatoduodenal ligament. The eschar was quite dense around the cystic duct and therefore part of the gallbladder was taken down from the liver bed using the harmonic scalpel in order to be able to see more of the critical view. The cystic duct and cystic artery were dissected free bluntly with moderate difficulty due to the scar tissue. The cystic artery was isolated then divided near structures with a gallbladder using Harmonic scalpel. Once the critical view had been obtained the cystic duct was still not able to be completely visualized due to the amount scar tissue in the gallbladder was then taken down completely from the gallbladder bed using the harmonic scalpel. During this portion of the procedure the gallbladder was partially opened and numerous stones were retrieved and sent for pathology. Once the gallbladder been taken down from the liver bed the cystic duct was able to be identified although the exact size cannot be determined. 2 Endoloops were placed around the cystic duct and secured after which it was divided near structures with the gallbladder using the harmonic scalpel. It was then placed within an Endo Catch bag and brought through the upper midline incision which was necessarily enlarged to allow egress of the gallbladder and the back. It was then sent for permanent pathology. The liver bed was inspected and found to be hemostatic. The cystic duct cystic artery stumps were both inspected and found to be intact with no leakage of bile or blood. Due to the extensive nature of the dissection and the liver bed itself due to the intrahepatic nature of the gallbladder, and the decision was made to leave a 10 mm drain. The drain was brought through the right upper quadrant incision and then placed in the liver bed. Secured to skin with a 3-0 nylon. The liver bed was inspected again and found be hemostatic. The carbon dioxide was then vented as completely as possible to the atmosphere, after which the ports were removed and the 12 mm fascial defect closed with interrupted 0 Vicryl sutures. Skin was closed with interrupted 4-0 Monocryl subcuticular stitches. Steri-Strips were applied the patient was then taken from the operating room in satisfactory condition, having tolerated procedure without problem. Estimated blood loss was less than 100 mL's. The isthmus ring , sponge, and needle counts were reported as being correct 2 at the end of the procedure. Hermelindo Anne MD Nov 16, 2016 11:58
[2016-11-16] MEDS ORDERED: *morphine SULFATE 8 MG/ML PERIprocedure ONLY ONE (12:17)
[2016-11-16] MEDS ORDERED: KETOROLAC TROMETHAMINE 30 MG/ML (IVP) VIAL ONE (12:26)
[2016-11-16] MEDS ORDERED: MORPHINE SULFATE 4 MG/ML INJ IV PRN ×2 (13:00)
[2016-11-16] MEDS ORDERED: SODIUM CHLORIDE 5 ML FLUSH PRN IVF (13:00)
[2016-11-16] MEDS ORDERED: DO NOT ADM ANY ANTICOAGULANT DRUGS XX PRN (13:00)
[2016-11-16] MEDS ORDERED: oxyCODONE/ACETAMINOPHEN 5 MG/325 MG TAB PO PRN (13:00)
[2016-11-16] MEDS ORDERED: ONDANSETRON HCL 4 MG/2 ML VIAL IV PRN (13:00)
[2016-11-16] MEDS: SODIUM CHLORIDE 0.9% FLUSH 5 ML FLUSH IVF SCH ×2 (13:26→21:00)
[2016-11-16] MEDS: NS + KCL 20 MEQ INJ 1,000 ML IV SCH ×2 (13:26→23:08)
[2016-11-16] MEDS: PANTOPRAZOLE SODIUM 40 MG VIAL IV PUSH SCH (13:26)
[2016-11-16] MEDS: oxyCODONE/ACETAMINOPHEN 5 MG/325 MG TAB PO PRN ×2 (13:54→23:07)
[2016-11-16] MEDS: ONDANSETRON HCL 4 MG/2 ML VIAL IV PRN ×2 (18:43→23:06)
[2016-11-16] MEDS: SODIUM CHLORIDE 5 ML FLUSH BID IVF SCH (21:00)
[2016-11-17] VITALS (8 sets, daily range): BP systolic 94–143; BP diastolic 52–76; PULSE 91–109; RESP 18; TEMP 98.4–101.1; O2SAT 96–98
[2016-11-17] MEDS: ONDANSETRON HCL 4 MG/2 ML VIAL IV PRN ×2 (06:52→13:56)
[2016-11-17] MEDS: PANTOPRAZOLE SODIUM 40 MG VIAL IV PUSH SCH (08:23)
[2016-11-17] MEDS: SODIUM CHLORIDE 5 ML FLUSH BID IVF SCH (08:23)
[2016-11-17] MEDS: SODIUM CHLORIDE 0.9% FLUSH 5 ML FLUSH IVF SCH (08:23)
[2016-11-17] MEDS: NS + KCL 20 MEQ INJ 1,000 ML IV SCH (08:24)
[2016-11-17] MEDS: oxyCODONE/ACETAMINOPHEN 5 MG/325 MG TAB PO PRN (09:26)
--- NOTE | 2016-11-17 09:39 | HHI.PR ---
Subjective Remarks c/o some nausea. feels "puffy from ivf" Objective Vitals heart reg lung cta abd ruq marjorie drain noted. bs ext no pitting. Vital Signs Date Time Temp Pulse Resp B/P Pulse Ox O2 Delivery O2 Flow Rate FiO2 11/17/16 08:00 99.9 109 18 120/71 98 11/17/16 07:27 96 21 11/17/16 04:00 Room Air 11/17/16 04:00 98.8 98 18 111/61 97 11/17/16 01:55 96 21 11/17/16 01:20 100.6 11/17/16 00:00 101.1 94 18 143/76 97 11/17/16 00:00 Room Air 11/16/16 20:00 98.8 84 20 119/74 98 11/16/16 20:00 80 11/16/16 20:00 Room Air 11/16/16 17:41 99 21 11/16/16 16:00 98.2 85 16 99/56 99 11/16/16 13:30 98.1 99 16 114/69 100 11/16/16 12:30 98.6 89 15 116/78 98 Nasal Cannula 2 11/16/16 12:15 90 15 123/67 98 Nasal Cannula 2 11/16/16 12:00 91 15 115/73 98 Nasal Cannula 2 11/16/16 11:45 98 15 117/65 98 Nasal Cannula 3 11/16/16 11:35 98.6 102 15 122/65 98 Nasal Cannula 3 11/16/16 11/16/16 11/17/16 15:00 23:00 07:00 Intake Total 1400 ml 1461 ml 957 ml Output Total 100 ml 70 ml 15 ml Balance 1300 ml 1391 ml 942 ml Intake Oral 0 ml 240 ml 120 ml IV Total 100 ml 1221 ml 837 ml Other 1300 ml Gastric Drainage Total 50 ml Drainage Total 20 ml 15 ml Estimated Blood Loss 100 ml # Voids 5 1 3 # Bowel Movements 0 0 Result Diagram: 11/15/1618 11/16/16 0539 A/P Problem List: (1) Acute pancreatitis Status: Acute Plan: Pt admitted and transfer to [facility] for concerns over possible gallstone pancreatitis. mild lipase elevation and gallstone in gb. Lipase nml now Hida scan concerning for cystic duct obstruction and cholecystitis she had persistent ruq pain and fever Taken by Dr Anne for lap darius on 11/16 and confirmed acute cholecystitis advance diet as tolerated stop ivf prn antiemetics and pain meds ambulate this AM hopefully d/c this evening if possible (2) Acute cholecystitis Status: Acute Plan: see above Problem Qualifiers (1) Acute pancreatitis: Qualified Code: K85.10 - Acute biliary pancreatitis without infection or necrosis lEiud Sanchez MD Nov 17, 2016 09:39
[2016-11-17] MEDS ORDERED: BISACODYL EC 5 MG TABEC PO ONE (09:45)
[2016-11-17] MEDS ORDERED: ONDANSETRON HCL 4 MG/2 ML VIAL IV PUSH ONE (09:45)
[2016-11-17] MEDS ORDERED: ONDANSETRON HCL 4 MG/2 ML VIAL IV PRN (11:00)
--- NOTE | 2016-11-17 12:24 | HHI.PR ---
Subjective Subjective Notes Nauseated earlier; now better after breakfast. No other complaints than mild pain. Has been OOB walking. Objective Vitals/I&O Vital Signs Date Time Temp Pulse Resp B/P Pulse Ox O2 Delivery O2 Flow Rate FiO2 11/17/16 08:20 Room Air 11/17/16 08:20 106 11/17/16 08:00 99.9 18 120/71 98 11/17/16 07:27 21 11/16/16 12:30 2 Cardiovascular: Regular Lungs: Clear Abdomen: Non-distended, Post-op tenderness A/P Assessment and Plan S/P lap dairus yesterday; Doing well: D/C today with drain. Will see in the office this week. Hermelindo Anne MD Nov 17, 2016 12:24
[2016-11-17] MEDS ORDERED: ZOFR4TAB3 SL (13:31)
--- NOTE | 2016-11-17 13:31 | HHI.DCPOC ---
Discharge Care Plan Diagnosis: (1) Acute cholecystitis (2) Cholelithiasis (3) Acute pancreatitis Goals to Promote Your Health * To prevent worsening of your condition and complications * To maintain your health at the optimal level Directions to Meet Your Goals Take your medications as prescribed Follow your dietary instruction Follow activity as directed Keep your appointments as scheduled Take your immunizations and boosters as scheduled If your symptoms worsen call your PCP, if no PCP go to Urgent Care Center or Emergency Room Smoking is Dangerous to Your Health. Avoid second hand smoke Call the 24-hour hour crisis hotline for domestic abuse at Eliud Sanchez MD Nov 17, 2016 13:31
--- NOTE | 2016-12-16 08:57 | HHI.DS ---
Discharge Summary Admission Date Nov 13, 2016 at 23:48 Discharge Date: Nov 17, 2016 Admitting Diagnosis acute pancreatitis. Cholelithiasis. (1) Acute pancreatitis Diagnosis: Principal (2) Acute cholecystitis Diagnosis: Principal Brief History Pt is 36 yo with ongoing nausea and worsening epigastric/ruq pain over past 3 days. Says eating food does make it worse. did have some n/v. w/up so far shows mild lipase elevation and gallstones bringing gallstone pancreatitis in to question. GI requested transfer to [facility] from [place]. Hospital Course Pt admitted and transfer to [facility] for concerns over possible gallstone pancreatitis. mild lipase elevation and gallstone in gb. Lipase nml now Hida scan concerning for cystic duct obstruction and cholecystitis she had persistent ruq pain and fever Taken by Dr Anne for lap darius on 11/16 and confirmed acute cholecystitis Pt Condition on Discharge: Stable Discharge Disposition: Discharge Home Discharge Instructions DIET: Follow Instructions for: As Tolerated, No Restrictions Activities you can perform: Regular-No Restrictions Follow up Referrals: Surgical - 11/19/16 @ [facility] Surgery with Hermelindo Anne MD Changed Medications: Ondansetron Odt (Zofran Odt) 4 Mg Tab 4 MG SL Q4-6H PRN Nausea/Vomiting #20 Ref 0 TAB (Changed from: Q6HR; 30) Continued Medications: Tramadol (Ultram) 50 Mg Tab 50 MG PO Q6H PRN PAIN #12 Ref 0 TAB Discontinued Medications: Cyclobenzaprine Hcl (Flexeril) 10 Mg Tab 10 MG PO TID #20 Naproxen (Naprosyn) 500 Mg Tab 1 TAB PO BID #20 Eliud Sanchez MD Dec 16, 2016 08:57
== END 2016-11-17 15:20 | disposition home or self-care (01) | DRG 418 ==
LOC: PHED 21:22 → PHEDA 23:48 → N04A 11-14 02:40
PROVIDERS: ADMIT Hospitalist; ATTEND Hospitalist
PROC: 0FT44ZZ Resection of Gallbladder, Percutaneous Endoscopic Approach (ICD-10-PCS; principal; 2016-11-16 09:06)
DX: K85.10 Biliary acute pancreatitis without necrosis or infection (principal); K80.00 Calculus of gallbladder with acute cholecystitis without obstruction; K76.0 Fatty (change of) liver, not elsewhere classified; E87.6 Hypokalemia; K21.9 Gastro-esophageal reflux disease without esophagitis; Z91.041 Radiographic dye allergy status
CPT/HCPCS: 74176; 78226; 80048; 80053; 81001; 83690; 84702; 84703; 85025; 85610; 85730; 88304; 96361; 96374; 96375; A9537; C9113; J0131; J1170; J1885; J2250; J2270; J2405; J2543; J2710; J3010; J3480; J7030